=== PATIENT | female | born 1960 | race Caucasian/White ===

== ENCOUNTER → 2018-09-06 | Outpatient (CLI) | payer OTHER, SELFPAY ==
--- NOTE | 2018-09-06 15:27 | RAD_ITS ---
STUDY: X-RAY - RIGHT KNEE REASON FOR EXAM: Bilateral knee pain. TECHNIQUE: 4 view(s) of the knee. COMPARISON: None. FINDINGS: Normal visualized distal femur. Normal visualized proximal tibia and fibula. Normal proximal tibiofibular articulation. Normal medial femorotibial compartment. Normal lateral femorotibial compartment. There are small marginal osteophytes and moderate joint space narrowing of the patellofemoral articulation. The soft tissue structures are unremarkable. RAD/Knee 4 or More Views IMPRESSION: Patellofemoral arthrosis. Electronically Signed: Pato Jernigan MD at 10:48 EDT Tel , Service support ,
--- NOTE | 2018-09-06 15:27 | RAD_ITS ---
STUDY: X-RAY - LEFT KNEE REASON FOR EXAM: Female, 58 years old. Bilateral knee pain. TECHNIQUE: 4 view(s) of the knee. COMPARISON: None. FINDINGS: There is generalized osteopenia. Normal visualized distal femur. Normal visualized proximal tibia and fibula. Normal proximal tibiofibular articulation. There is mild medial compartmental arthrosis. Normal lateral femorotibial compartment. There is lateral tilt and subluxation of the patella with moderate arthrosis of the patellofemoral compartment. There is an intra-articular osteochondral body in the anterior aspect of the knee measuring approximately 7 mm in widest diameter best seen on the lateral view. RAD/Knee 4 or More Views IMPRESSION: Osteopenia with medial and patellofemoral compartment arthrosis. 7 mm in diameter intra-articular osteochondral body. Electronically Signed: Pollo De La Torre MD at 17:02 EDT , Service support ,
== END | disposition home or self-care (01) ==
LOC: HPRAD 15:26
PROVIDERS: Family Provider Internal Medicine; PCP Internal Medicine; Referring Provider Orthopaedic Surgery; Visit Provider Orthopaedic Surgery
DX: M25.561 Pain in right knee (principal); M25.562 Pain in left knee
CPT/HCPCS: 73564

== ENCOUNTER 2018-09-14 15:52 | Outpatient (RCR) | payer OTHER, SELFPAY ==
--- NOTE | 2018-09-14 17:01 | HP.PTEVAL_ITS ---
Patient's Visit Information KIMBERLEY MATHEWS is a 58 year old F referred to Physical Therapy by Marlena Resendiz DO with a diagnosis of Patellofemoral OA, Maltracking of Patella. Date of Evaluation: 09/14/18 Physical Therapist: Dorita Cervantes DPT - Visit Plan Plan: Home exercise program give- high deductible was unable to attend more therapy sessions. Gave email and encouraged her to call or email with questions - Subjective Findings: Patient reports that both knees bother her- chronic issue- just can't put up with it anymore. Pain is located under the knee caps-No radiating pain. Worst: 01/05 Agg: walking on uneven ground, stairs, getting up out of the chair- when she rides her bike its not bad but it hurts after. Rides 1x a week- a couple hours at a time. Eases: rest, Naproxen Best: 06/05. Had previous surgery on the right 30 years ago to track her knee cap and cleaned it out. X- rays on both but no MRI. Did not have injection- but did just get approval for gel injections. Does not want to come to PT only have a HEP. Work: [employer] and is on her feet 8 hours a day with heavy lifting. Wears tennis shoes and has gel inserts. Describes the pain as dull/achy and sharp/shooting depends on what she is doing. Right is worse than left. No N/T in the LE. Sleep: not disturbed. PMHx/meds: no changes since saw MD- but has a heart stent - Objective Posture:good throughout session. Gait: no deviation noted. Stairs: asc/desc 8 recip with no HR- mild toe out with asc and decreased control with descent. HR/TR: able without incidence. SLS: hip drop- decreased balance after 15 second-increaesed muscle activation. Palpation tender along right superior lateral patella. ROM: 0-130 degrees. Strength: ankle: 5/5, Knee: 4+/5 Hip: 4+/5- patella tracks laterally bilaterally right>left Core: fair. Observation: mild pes planus - Goals Goal 1:: Patient I with HEP - Rehabilitation Potential Physical Therapy Diagnosis: Patient presents with hypomobility- she has decreased strength, flex and muscular endurance leading to poor tracking patellas and pain with ADL's. - Anticipated Interventions Thank you for the opportunity to evaluate your patient. For Medicare and Medicare HMO plans, please review the plan of care and approve it. It will need to be FAXED BACK to us at [phone] for Medicare purposes. For Medicare only, by signing this I certify the plan of care. Please let me know if there are questions or concerns regarding this plan of care. Physician Signature: Date:
--- NOTE | 2018-11-29 13:31 | HP.PTDCSUM ---
HP - PT D/C Summary It has been my pleasure to treat KIMBERLEY MATHEWS under orders from Marlena Resendiz DO, for the diagnosis of Patellofemoral OA, Maltracking of Patella for a total of 1 visit(s). Discharge Date: 09/14/18 Please see the following information for a summary of their discharge status. - Goals Goal 1:: Patient I with HEP - Plan Plan: Home exercise program give- high deductible was unable to attend more therapy sessions. Gave email and encouraged her to call or email with questions - D/C Information Discharge Comments: Patient has high deductible and does not want to attend therap- was given HEP and encouraged to call if questions If there are questions or concerns regarding this patient's physical therapy, please feel free to call me at [phone]. Thank you for the referral of this patient. Sincerely, CRISTOPHER EasleyT
== END 2018-09-14 19:00 | disposition home or self-care (01) ==
LOC: PT 15:52
PROVIDERS: Family Provider Internal Medicine; PCP Internal Medicine; Referring Provider Orthopaedic Surgery; Visit Provider Orthopaedic Surgery
DX: M22.2X9 Patellofemoral disorders, unspecified knee (principal)
CPT/HCPCS: 97110; 97161

== ENCOUNTER → 2020-08-19 16:34 | Outpatient (CLI) | payer OTHER, SELFPAY ==
--- NOTE | 2020-08-19 16:36 | CT_ITS ---
STUDY: LEFT LOWER EXTREMITY CT SCAN REASON FOR EXAM: Female, 60 years old. templating for LEFT TKA RADIATION DOSAGE (If Supplied By Facility): CTDIvol = ( 18.76 ) mGy, DLP = ( 1193.63 ) mGycm. Individualized dose optimization techniques were used for this CT.? TECHNIQUE: Axial multidetector CT scan of the left lower extremity. Coronal and sagittal reformatted images. COMPARISON: 07/18/2020. FINDINGS: Left hip: Mild left hip osteoarthritis. Mild pubic symphysis arthrosis. Normal sacroiliac joint. Visualized intra-abdominal/pelvic contents within normal limits. Osseous structures intact. Left knee: Mild medial and lateral compartment arthrosis. Severe patellofemoral arthrosis. Small volume left knee joint effusion. Multiple joint spaces loose bodies measuring up to 6 mm (sagittal image 36 series 605). Lateral femoral trochlea osteochondral lesion (sagittal image 44 series 605). Mild soft tissue swelling. Osseous structures intact. Left ankle: Achilles Achilles enthesophyte. Plantar spur. Osseous structures intact without significant degenerative features. CT/Extremity Lower without Contra IMPRESSION: Left knee osteoarthritis predominating at the patellofemoral articulation Left knee small joint effusion with loose bodies and mild swelling Mild left hip and left ankle osteoarthritis Electronically Signed: Rafiq Sol DO at 12:43 EDT Tel , Service support ,
== END ==
PROVIDERS: PCP Internal Medicine; Referring Provider Orthopaedic Surgery; Visit Provider Orthopaedic Surgery
DX: M17.11 Unilateral primary osteoarthritis, right knee (principal)
CPT/HCPCS: 73700

== ENCOUNTER 2020-09-10 05:24 | Day surgery (SDC) | payer OTHER, SELFPAY ==
--- NOTE | 2020-08-29 15:53 | EKG12_ITS ---
Test Reason : PRE-OP Blood Pressure : / mmHG Vent. Rate : 066 BPM Atrial Rate : 066 BPM P-R Int : 224 ms QRS Dur : 076 ms QT Int : 398 ms P-R-T Axes : 056 005 027 degrees QTc Int : 417 ms Sinus rhythm with 1st degree A-V block Otherwise normal ECG Confirmed by SCOTT VELOZ, JOSEFINA ([id number]), international editorial producer ANGELA LAGUNAS ([id number]) on 09/02/2020 10:39:09 AM Referred By: Tonny Gomez Confirmed By:NEEMA CHAVEZ MD
[2020-08-29 17:29] LABS: Absolute Lymphocyte Count 2.51 X10^3/uL (0.83-4.51); Absolute Neutrophil Count 4.5 X10^3/uL (2.0-7.7); Basophil# 0.02 X10^3/uL; Basophil% 0.3 % (0-1); Eosinophil# 0.08 X10^3/uL; Hematocrit 40.8 % (37-47); Hemoglobin 13.6 g/dL (12.0-15.0); Lymphocyte # 2.51 X10^3/ul (0.83-4.51); Lymphocyte % 32.9 % (19-41); Mean Corp Hgb Conc 33.3 g/dL (32-36); Mean Corpuscular Hgb 30.8 pg (27.0-32.0); Mean Corpuscular Volume 92.3 fL (81-99); Monocyte# 0.53 X10^3/uL; Monocyte% 6.9 % (0-10); NRBC Flagged by Analyzer 0 % (0-5); Neutrophil # 4.49 X10^3/uL (2.7-7.7); Neutrophil % 58.8 % (47-70); Platelet Count 249 K/mm3 (150-450); RBC Distribution Width CV 12.3 % (11.6-14.6); RBC Distribution Width SD 42.3 fl (35.1-43.9); Red Blood Count 4.42 M/mm3 (4.2-5.4); White Blood Count 7.6 K/mm3 (4.4-11.0)
[2020-08-29 17:31] LABS: Prothrombin Time (Protime)PT. 12.4 SECONDS (11.7-14.9)
[2020-08-29 17:32] LABS: Partial Thromboplast Time 33.1 Seconds (24.1-36.2)
[2020-08-29 17:53] LABS: Anion Gap 7 (5-15); BUN 28 mg/dL (7-18); BUN/Creat Ratio 31.4 RATIO (10-20); Calcium,Total 9.2 mg/dL (8.5-10.1); Chloride 101 mmol/L (98-107); Creatinine, Serum 0.89 mg/dL (0.55-1.02); EST Glomerular Filtration Rate 68 mL/min (>60); Est Glom Filt Rate - Afr Amer 82 mL/min (>60); Glucose 88 mg/dL (74-106); Potassium 4.3 mmol/L (3.5-5.1); Sodium Level 140 mmol/L (136-145)
[2020-08-29 18:02] LABS: Magnesium 2.3 mg/dL (1.6-2.6)
[2020-08-31 08:40] LABS: Fructosamine 231 umol/L (0-285)
[2020-09-10] VITALS (11 sets, daily range): BP systolic 101–172; BP diastolic 52–83; PULSE 61–81; RESP 16–18; TEMP 36.2–36.6; O2SAT 97–100; BMI 26.6
[2020-09-10] MEDS: Gabapentin 600 MG Tablet PO (06:24)
[2020-09-10] MEDS: Scopolamine 1mg/72hr Patch 1 PATCH TD (06:25)
[2020-09-10] MEDS: Lactated Ringers 1,000 ML 100 ML IV ×2 (06:25→07:30)
[2020-09-10] MEDS: Celecoxib 200 MG Capsule 400 MG PO (06:25)
[2020-09-10] MEDS: Acetaminophen 500 MG Tablet 1000 MG PO ×2 (06:25→13:41)
--- NOTE | 2020-09-10 07:05 | HP.PCM_ITS ---
History and Physical Date of Admission: 09/10/20 MR#:[id number]:[id number]: KIMBERLEY MATHEWS #:[id number] Provider:Dr. Tonny Gomez DOAge/Sex: 60/F [place] [place] Int[place] Intake Visit Reasons: bilateral knee Allergies No Known Allergies Allergy (Unverified 07/18/20 14:16) Medications aspirin 81 mg tablet,delayed release PO 30 Days #30 tab 09/06/18 [History Confirmed 07/24/20] metoprolol tartrate 25 mg tablet PO 30 Days #60 tab 09/06/18 [History Confirmed 07/24/20] simvastatin 20 mg tablet PO 30 Days #30 tab 09/06/18 [History Confirmed 07/24/20] trazodone 50 mg tablet PO 90 Days #90 tab 09/06/18 [History Confirmed 07/24/20] HPI bilateral knee Details: Parts of this documentation were recorded by a scribe, this documentation accurately reflects the service provided and the decisions made by me, Dr. Tonny Gomez, 07/24/20 2129. KIMBERLEY MATHEWS is a 60 year old F here today for bilateral knee pain. Pain (location, quality, quantity, radiation): Under the kneecap on both sides and medial sided knee pain. When sitting no pain, when moving 10/10 and it feels like gringins, popoing, instability. Onset (date, injury, precipitating event): 5-6 years, right sided racquetball injury in the 80's - surgery fixed. 1 month ago noticed in the left knee she could not kneel due to pain. Prior Hx (injury, surgery, prior issues with extremity): Right knee arthroscopic surgery (regarding ligaments patient thinks, but she cannot recall). Denies all else. Aggravating factor (position, tasks): Going up stairs, walking, standing, standing up from a chair Treatments (ice/heat , Medication, bracing, injections, home exercises): Uses biofreeze, but this is not working. Ice helps some. Has tried Tylenol and naproxen, both without relief. Denies steroid injections, bracing. Orthovisc injection last given 10/11/18, which helped for awhile - few months. Has had formal PT, but always makes it worse. Comorbidities (BMI, DM, Inflammatory conditions, blood thinner, chemotherapy): Takes 1 baby aspirin, she has a stent in her heart and is not sure if she can take NSAIDs. Social (upper extremity dominance, profession, tobacco/drugs/ETOH): Works on her feet 8 hours per day/ lifting heavy boxes at [employer]. Other: Denies locking/catching. Cannot carry even a jug of milk going up the stairs. [employer] [facility] [employer] [facility]. ROS Const Denies chills and Denies fever(s) Card Denies dyspnea Resp Denies dyspnea GI Denies nausea and Denies vomiting Musc Reports arthralgias, Reports atrophy, Denies joint swelling, Denies limited range of motion, Denies numbness, Reports stiffness and Denies tingling Skin/Breast Denies rash Neuro No numbness and No tingling Ortho Exam General General: Yes no acute distress Neurologic: Yes alert and Yes oriented x3 Psychologic: Yes reasonable and appropriate Right Knee Skin/Wound: No erythema, No ecchymosis and No swelling Knee ROM: Yes ROM-Extension -20 to 0 (lacking 3 degrees) and Yes ROM-Flexion 0- 140 Examination: Yes Med jt line tenderness, Yes Lat jt line tenderness, No Pain with flexion, No Pain with extention, No Fabiano's Test and No TTP Pes Anserine Stability: NML: Anterior Drawer, NML: Posterior Drawer, NML: Valgus 30 and NML: Varus 30 Patella Grind: Yes KNEE: No patellar instability Left Knee Skin/Wound: No ecchymosis, No erythema and No swelling Knee ROM: Yes ROM-Extension -20 to 0 and Yes ROM-Flexion 0-140 Examination: Yes med jt line tenderness, Yes Lat jt line tenderness, No Fabiano's Test and No TTP Pes Anserine Stability: NML: Anterior Drawer, NML: Posterior Drawer, NML: Valgus 30 and NML: Varus 30 Patella Grind: Yes KNEE: no patellar instability. Supplemental Info 07/18/2020 x-ray left knee medial and patellofemoral arthrosis worse patellofemoral with loose body anterior recess 07/18/2020 x-ray right knee advanced patellofemoral arthrosis with spurring throughout the knee Coding Level of Care Code Off vis,new,level 3 Diagnoses Right knee DJD M17.11 Left knee DJD M17.12 Assessment and Plan Assessment and Plan (1) Right knee DJD: Status: Acute Plan - Dr. Tonny Gomez, DO: Xrays were taken today. Educated patient that she has bilateral medial and patellofemoral OA. On the left she also has a loose body. Treatment options include steroid injections, viscosupplementation, PT, NSAIDs, bracing, or surgical options. Educated her that because of her age and other compartment spurring would do a TKA versus just replacing the patella. Educated that if she opts for the surgical option she cannot do a TKA for 3 month after steroid injections due to increased risk of infection. TKA was discussed, risks, benefits, and post operative course. 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 Discussed that she would most likely be off work for 3 months and she would be in PT for approximately 2 months after lele niecy. Discussed that I recommend doing 1 knee at a time versus both at the same time. Second knee can be done about 3 months after the first knee is done. Discussed IOVERA treatments and the benefits. She would like to think about the options that were discussed today and she will let us know what she would like to do. Risks, benefits and alternatives of surgery reviewed including but not limited to bleeding, infection, nerve, artery and/or tissue damage, fracture, VTE, mechanical feel of the knee, continued pain, stiffness and expected post- operative course. Patient's questions were answered. She is in agreement with the plan. Patient should follow up in or sooner if worsening signs/symptoms. (2) Left knee DJD: Status: Acute 07/24/20 1617<Electronically signed by Alexandria TALBERT PA>Date Alexandria TALBERT 07/24/20 1559<Electronically signed by Tonny Gomez DO>Cosigner Signature:Date (if applicable)Tonny Gomez have re-examined the patient. There are no clinical changes since date of exam
[2020-09-10] MEDS: Cefazolin 2 GM in 0.9% Normal Saline 100 ML IV (07:29)
--- NOTE | 2020-09-10 07:30 | KNEE_PTH ---
PATIENT: KIMBERLEY MATHEWS [place] [facility] [place][id number] AGE/SX: 60/F ROOM: RE09/10/[address]: Dr. Tonny Gomez DO : 1960 BED: DIS: 09/10/2020 SPEC #: [id number] RECD: 09/10/20 10:13 STATUS: KIMI REPepper #: [id number] MILES: 09/10/20 07:[address]: Tonny Gomez DEPT: SURGICAL PATHOLOGY RECD BY: Denisse Bridges ENTERED: 09/10/20 10:33 SP TYPE: TOTAL KNEE OTHR DR: Dr. Mabel Santoro MD Tissues: Knee, NOS Procedures: Decalcification bone/plaque Surgery Specimen Level IV HEADER OPERATION: ERAS, total knee replacement robotic arm assist PRE-OP DIAGNOSIS: DJArya TISSUE SUBMITTED: Bone and soft tissue, left knee MICROSCOPIC DIAGNOSIS Bone and soft tissue, left knee, total knee replacement/resection: Pieces of bone with degenerative osteoarthritic changes. DAYNE:yeimy 09/13/2020 MICROSCOPIC DESCRIPTION Slides are reviewed. GROSS DESCRIPTION Received is one container designated bone and soft tissue left knee. The specimen consists of multiple fragments of dixon-yellow bone measuring in aggregate 10 x 8 x 2 cm. No soft tissue is identified. A number of bony fragments contain articular surfaces consistent with tibial plateau and femoral condyle and displaying prominent osteophyte formation and bone erosion. Title One Reading Teacher sections are submitted in one cassette after decalcification. / DAYNE:yeimy 09/10/20 TC:5 CPT: 74577, 78724
[2020-09-10] MEDS: dexAMETHasone 10 MG/ML Vial IV (07:58)
[2020-09-10 08:10] LABS: Bedside Glucose 93 mg/dL (70-110)
[2020-09-10] MEDS: Lactated Ringers 1,000 ML 125 ML IV (09:00)
[2020-09-10] MEDS: Epinephrine (1 mg/ml) 1 MG/ML VIAL (09:01)
[2020-09-10] MEDS: Bupivacaine Mpf 0.5% 30 ML VIAL (09:01)
[2020-09-10] MEDS: Betamethasone/Betamethasone 30 MG/5 ML Vial (09:01)
--- NOTE | 2020-09-10 09:19 | RAD_ITS ---
STUDY: X-RAY - LEFT KNEE REASON FOR EXAM: Postop left total knee arthroplasty. TECHNIQUE: 2 view(s) of the knee. COMPARISON: Radiographs 07/18/2020. FINDINGS: There is a left total knee arthroplasty without evidence of complication. There is postoperative gas in the soft tissues and overlying skin edna. RAD/Knee 1 or 2 Views IMPRESSION: Uncomplicated left total knee arthroplasty. Electronically Signed: Pato Jernigan MD at 13:55 EDT Tel , Service support ,
--- NOTE | 2020-09-10 09:22 | OP.PCM_ITS ---
Report of Operation Description of Surgical Findings:: Preoperative diagnosis: Left knee DJD Postoperative diagnosis: Same Procedure: Left total knee arthroplasty CT guided Robotic Assisted Implant: Precious triathlon press fit femoral component size3, press-fit tibial baseplate size 3, press fit asymmetric patella size 32, polyethylene X3 size 9 CS Anesthesia: un sucessful Spinal with conversion to general with adductor canal block Tourniquet time: 40 minutes at 300 mmHg Complications: None Condition: Stable to PACU Estimated blood loss: 150 cc Indication for procedure: This is a 60-year-old female with long standing degenerative joint disease of the knee who has failed conservative treatment and wished to proceed with elective total knee arthroplasty. Risk benefits and alternatives were reviewed including; risk of bleeding, infection, nerve artery and tissue damage, continued pain, postoperative stiffness, venous thromboembolism, need for postoperative rehabilitation, mechanical feel to the knee, and expected postoperative course. The operative CT and templating was performed with component sizing Procedure: The patient was met in the preoperative holding area. The operative extremity was identified by both patient and physician and was marked. Patient was met by anesthesia. An adductor canal block was placed by anesthesia postoperatively the patient was brought back to the operating room on a wheeled cart and transferred to the operating table in the supine position. Anesthesia was started. A well-padded tourniquet was placed on the operative extremity. The patient was prepped and draped in the usual sterile fashion. A timeout was called to ensure the proper patient procedure and extremity were being contemplated. An Esmarch was used to exsanguinate the extremity. The tourniquet was inflated. A 10 blade scalpel was used to make a midline incision down through the skin and subcutaneous tissue. Skin retractors placed. Bovie was used to perform meticulous hemostasis. full-thickness flaps were elevated medial and lateral along the joint capsule. A deep blade scalpel was used to perform a medial parapatellar arthrotomy. The knee was brought to full extension. A Bovie was used to release the soft tissues off the most proximal aspect of the medial tibial plateau, a three-quarter inch curved osteotome was also used for this process. The infrapatellar fat pad was excised. The superior fat pad was excised partially anteriorolateraly and portion the anterioromedial pad was elevated from the femur. At this point our intra- articular femoral array was placed of a 45 degree angle proximal and posterior to the medial epicondyle. Our tibial array was placed greater than 1 hands breath below the incision at a 20 degree angle stab incisions were used for this case were attached and checked with the robotic software. Tourniquet was let down. At this point registration babb were taken throughout the knee as well as checkpoints placed in the femur and tibia once the knee was registered then tensioned the medial and lateral ligaments in extension and 90 degrees of fl exion. We then used these numbers to adjust our components within parameters to balance the knee in both flexion and extension once this was done on our monitor we then proceeded with using the robotic arm to make our tibial plateau cut and anterior posterior and chamfer cuts and distal on the femur we then trialed and achieved the desired plan with a well-balanced knee. Lug holes were drilled in the femur the tibia preparation was completed with a fin punch and the patella was prepared by first using a caliper to ensure sufficient bone stock and a patellar reamer to remove the desired amount of bone locals were drilled for an asymmetric poly-. We then brought the knee through range of motion with excellent patellar tracking. We thoroughly irrigated the knee with a trial components were removed a posterior capsular injection with her standard cocktail was performed the aqua Mantis was also used to aid in hemostasis. Betadine rinse was allowed to sit and washed out components were press-fit into place. Aricept rinse was then used followed by several more rate liters of irrigation after it was allowed to sit. Joint capsule was closed with #1 Ethibond [id number] followed by Vicryl in the subcutaneous tissues staple in the skin arrays and checkpoints were removed prior to closure all counts were correct stab incisions were closed with a stable standard dressing in the form of Mepilex for the main incision Xeroform 4 x 4 and Tegaderm over pin site holes. Thigh-high FELIPE hose applied over top of dressing. Patient tolerated the procedure well and was directed to PACU in stable condition no intraoperative complications
--- NOTE | 2020-09-10 09:24 | DCINST_ITS ---
Discharge Instructions Diet Discharge Diet: No restrictions Activity Weight Bearing Status: Weight bearing as tolerated Keep extremity elevated above heart level: Operative Extremity Dressing / Incision Call your doctor if you observe: Shortness of breath and Chest pain Change Dressing in: 3 days Remove Dressing in: 3 days Additional Dressing/Incision Instructions:: Ice and elevate one week while not ambulating. Ambulation is encouraged. Weightbearing as tolerated. Use assistive devise for stability. Encourage FULL knee extension and flexion 1 time EVERY time you get up and down and MULTIPLE times per day. No showering 72 hours after surgery. Begin showering postop day #3. Remove the dressing prior to shower and gently wash with warm water and antibacterial soap then pat dry and place abdominal pad (or plain gauze) and FELIPE hose over top. This is to be done daily. Do not submerge for 3 weeks. If not showering daily after the initial 72 hours then you must clean incision and change dressing daily. Do not allow animals near the incision area. Keep clean. Follow anticoagulation recommendations as prescribed. Do not take any NSAIDs while on blood thinner. Do not take any additional narcotic pain medication other than what was prescribed on your surgery day without discussing with physician. Narcotic medi cation can be addictive. do not drink alcohol while taking narcotics. Start physical therapy. If you are not currently scheduled for physical therapy or you are unsure of appointment time please call office [facility] to arrange. Call Dr. Gomez with any concerns. Follow Up Care Please Follow Up With: Tonny Gomez DO When: 2 weeks Test Results: Test results from this visit will be discussed in further detail at your follow-up appointment, if applicable. Discharge Plan Admission Attending Provider: Tonny Gomez Primary Care Provider: Mabel Santoro Discharge Orders/Prescriptions Prescriptions: New acetaminophen 500 mg Tablet 1,000 mg PO Q8 Qty: 100 RF: 0 oxycodone 5 mg Tablet 5 - 10 mg PO Q4H PRN PRN (Reason: Pain Score 4-10/10) 7 Days Qty: 60 RF: 0 cephalexin [cephalexin] 500 MG capsule 1,000 mg PO Q8 Qty: 4 RF: 0 Eliquis 2.5 MG tablet 2.5 mg PO BID Qty: 30 RF: 0 Continued trazodone 50 mg tablet 50 mg PO QHS 90 Days Qty: 90 RF: 0 aspirin 81 mg tablet,delayed release (DR/EC) 81 mg PO DAILY 30 Days Qty: 30 RF: 0 simvastatin 20 mg tablet 20 mg PO QHS 30 Days Qty: 30 RF: 0 metoprolol tartrate 25 mg tablet 25 mg PO BID 30 Days Qty: 60 RF: 0 Calcium 600 with Vitamin D3 600 mg(1,500mg) -400 unit Tablet,Chewable 1 tab PO BID RF: 0 Referrals / Follow Up: Mabel Santoro MD [Primary Care Provider] - Disposition Discharge Orders: Discharge Patient (Routine); Ordered 09/10/20 Ordered By: Dr. Tonny Gomez
[2020-09-10] MEDS: oxyCODONE 5 MG Tablet PO (11:34)
[2020-09-10] MEDS: Cefazolin 1 GM/50 ML BAG IV (13:43)
[2020-09-10] MEDS: Ketorolac 15 MG/ML Vial IV (15:04)
== END 2020-09-10 15:44 | disposition home or self-care (01) ==
LOC: SDC 05:24 → AC 05:25
PROVIDERS: Anesthesiology; PCP Internal Medicine; Referring Provider Orthopaedic Surgery; Visit Provider Orthopaedic Surgery
PROC: 0SRD0JZ Replacement of Left Knee Joint with Synthetic Substitute, Open Approach (ICD-10-PCS; CPT 27447; principal; 2020-09-10 07:00)
DX: M17.12 Unilateral primary osteoarthritis, left knee (principal); E11.9 Type 2 diabetes mellitus without complications; Z87.891 Personal history of nicotine dependence; Z79.899 Other long term (current) drug therapy
CPT/HCPCS: 01402; 27447; 64447; 36415; 73560; 80048; 82962; 82985; 83735; 85025; 85610; 85730; 86850; 86900; 86901; 87081; 88305; 88311; 93005; 97162; C1776; J7120; J0702; J2405

== ENCOUNTER 2020-11-20 09:30 | Outpatient (RCR) | payer OTHER, SELFPAY ==
[2020-09-10 06:27] VITALS: BMI 26.6
--- NOTE | 2020-09-12 12:14 | HP.PTEVAL ---
Patient's Visit Information KIMBERLEY MATHEWS is a 60 year old F referred to Physical Therapy by Dr. Tonny Gomez DO with a diagnosis of L TKA . Date of Evaluation: 09/12/20 Physical Therapist: Bull Jay, PT, ATC - Visit Plan Frequency: 2-3x /Week Duration: 6 Weeks Plan: L knee PROM/mobs, stretching and strengthening, balance and proprio, nustep, and HEP - Subjective DOS: 09/10/20. Pt reports L TKA after years of L knee pain. Pt reports she was supposed to get a L TKA 15 years ago due to the damage but wanted to hold off. Pt reports her pain was not too bad a day after surgery, but notes she is very painful today. Pt notes she has sleep difficulty without the use of pain meds. Pt notes since her nerve block has worn off, she is in severe pain today. Pt notes the pain meds are not helping. Pt reports no tingling or numbness in L LE at this time. Pt reports a lot of stairs at home, and notes she can negotiate them one step at a time. 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 Pt notes she has a shoulder injury that is going through [employer] at the time. 4/10 pain at rest, 10/10 pain when getting out of bed and walking. - Pain L knee Pain Intensity (Out of 10): 4 Pain Intensity Range: 10 - Objective Nuero: B LE sensation is WNL to light touch. B achilles reflex= 1/3. Girth: R knee 36, L knee 40.5. ROM: R knee 0-7-130, L knee 0-17-80. MMT: R knee 13.1 throughout, L knee 0 throughout #F. [id number] - Goals Goal 1:: Decrease L knee pain x 50% to aid with sleep Goal Time Frame: 4-6 Weeks Goal 2:: Increase L knee ROM x 30 degrees to aid with restoring a more normalized gait pattern Goal Time Frame: 4-6 Weeks Goal 3:: Increase L knee strength x 1 grade to aid with stair negotiation Goal Time Frame: 4-6 Weeks Goal 4:: I with HEP Goal Time Frame: 4-6 Weeks - Rehabilitation Potential Physical Therapy Diagnosis: L knee pain, weakness, and limted ROM secondary to L TKA Rehabilitation Potential: Good - Anticipated Interventions Patient/Client Instruction: Educate patient on: Condition, Plan of Care For the Purpose of:: To improve self management Therapeutic Exercise to Include: Strength training, Balance training, Flexibilty training, Gait and locomotor training, Passive ROM, Active ROM, Dynamic Lumbar Stabilization For the Purpose of:: To decrease pain, To increase ROM, To improve muscle performance and motor function Cryotherapy (ice pack, ice massage): Yes For the Purpose of:: To decrease pain Thank you for the opportunity to evaluate your patient. For Medicare and Medicare HMO plans, please review the plan of care and approve it. It will need to be FAXED BACK to us at [phone] for Medicare purposes. For Medicare only, by signing this I certify the plan of care. Please let me know if there are questions or concerns regarding this plan of care. Physician Signature: Date:
--- NOTE | 2020-10-07 10:37 | HP.PTREVAL ---
Dr. Tonny Gomez, DO, It has been my pleasure to treat KIMBERLEY MATHEWS over the last 10 visits for L TKA . Please see the progress note below for an update on the physical therapy plan of care! Subjective: I am feeling better and better Objective/Function: Pt kaycee Rx well. Very challenged with ex's today. L knee ROM 0-5-120. Pt is progressing well toward Rx goals Plan Plan: L knee PROM/mobs, stretching and strengthening, balance and proprio, nustep, and HEP Goals Goal 1:: Decrease L knee pain x 50% to aid with sleep Goal Time Frame: 4-6 Weeks Goal Progress: Goal Met Goal 2:: Increase L knee ROM x 30 degrees to aid with restoring a more normalized gait pattern Goal Time Frame: 4-6 Weeks Goal Progress: Progressing Goal 3:: Increase L knee strength x 1 grade to aid with stair negotiation Goal Time Frame: 4-6 Weeks Goal Progress: Progressing Goal 4:: I with HEP Goal Time Frame: 4-6 Weeks Goal Progress: Progressing Anticipated Interventions Patient/Client Instruction: Educate patient on: Condition, Plan of Care For the Purpose of:: To improve self management Therapeutic Exercise to Include: Strength training, Balance training, Flexibilty training, Gait and locomotor training, Passive ROM, Active ROM, Dynamic Lumbar Stabilization For the Purpose of:: To decrease pain, To increase ROM, To improve muscle performance and motor function Cryotherapy (ice pack, ice massage): Yes For the Purpose of:: To decrease pain Please do not hesitate to contact me at [phone] by phone or if you have questions or concerns regarding this new plan of care! Sincerely, Bull Jay, PT, ATC
--- NOTE | 2020-10-25 10:30 | HP.PTREVAL ---
Dr. Tonny Gomez, DO, It has been my pleasure to treat KIMBERLEY MATHEWS over the last 18 visits for L TKA . Please see the progress note below for an update on the physical therapy plan of care! Subjective: I am stiff today Objective/Function: Pt reports pain is 3/10, still causes her to have sleep difficulty at this time. L knee MMT: Knee ext= 13#F, flex= 20 #F. L knee ROM: 0-5-107. Pt is progressing well toward Rx goals Plan Plan: L knee PROM/mobs, stretching and strengthening, balance and proprio, nustep, and HEP Balance/Gait/Functional tests - Balance/Special Test Scores Lower Extremity Functional Score: 55 Goals Goal 1:: Decrease L knee pain x 50% to aid with sleep Goal Time Frame: 4-6 Weeks Goal Progress: Progressing Goal 2:: Increase L knee ROM x 30 degrees to aid with restoring a more normalized gait pattern Goal Time Frame: 4-6 Weeks Goal Progress: Progressing Goal 3:: Increase L knee strength x 1 grade to aid with stair negotiation Goal Time Frame: 4-6 Weeks Goal Progress: Progressing Goal 4:: I with HEP Goal Time Frame: 4-6 Weeks Goal Progress: Progressing Anticipated Interventions Patient/Client Instruction: Educate patient on: Condition, Plan of Care For the Purpose of:: To improve self management Therapeutic Exercise to Include: Strength training, Balance training, Flexibilty training, Gait and locomotor training, Passive ROM, Active ROM, Dynamic Lumbar Stabilization For the Purpose of:: To decrease pain, To increase ROM, To improve muscle performance and motor function Cryotherapy (ice pack, ice massage): Yes For the Purpose of:: To decrease pain Please do not hesitate to contact me at [phone] by phone or if you have questions or concerns regarding this new plan of care! Sincerely, Bull Jay, PT, ATC
--- NOTE | 2020-11-20 11:01 | HP.PTREVAL ---
Dr. Tonny Gomez, DO, It has been my pleasure to treat KIMBERLEY MATHEWS over the last 28 visits for L TKA . Please see the progress note below for an update on the physical therapy plan of care! Subjective: Only mild pain today. I think I am ready for discharge. Objective/Function: L knee pain 1/10 currently. Increases to 8/10 when she experiences a sudden shooting pain when she twists her knee. L knee ROM: 0-5-110. L knee MMT: flex 17, ext= 23 #F. Pt is now I with HEP Plan Plan: Discharge Balance/Gait/Functional tests - Balance/Special Test Scores Lower Extremity Functional Score: 58 Goals Goal 1:: Decrease L knee pain x 50% to aid with sleep Goal Time Frame: 4-6 Weeks Goal Progress: Goal Met Goal 2:: Increase L knee ROM x 30 degrees to aid with restoring a more normalized gait pattern Goal Time Frame: 4-6 Weeks Goal Progress: Goal Met Goal 3:: Increase L knee strength x 1 grade to aid with stair negotiation Goal Time Frame: 4-6 Weeks Goal Progress: Goal Met Goal 4:: I with HEP Goal Time Frame: 4-6 Weeks Goal Progress: Goal Met Anticipated Interventions Patient/Client Instruction: Educate patient on: Condition, Plan of Care For the Purpose of:: To improve self management Therapeutic Exercise to Include: Strength training, Balance training, Flexibilty training, Gait and locomotor training, Passive ROM, Active ROM, Dynamic Lumbar Stabilization For the Purpose of:: To decrease pain, To increase ROM, To improve muscle performance and motor function Cryotherapy (ice pack, ice massage): Yes For the Purpose of:: To decrease pain Please do not hesitate to contact me at [phone] by phone or if you have questions or concerns regarding this new plan of care! Sincerely, Bull Jay, PT, ATC
--- NOTE | 2021-01-07 15:28 | HP.PTDCSUM ---
It has been my pleasure to treat KIMBERLEY MATHEWS referred by Dr. Tonny Gomez DO, with the diagnosis of L TKA for a total of 28 visit(s). Discharge Date: Please see the following information for a summary of their discharge status. Subjective: Only mild pain today. I think I am ready for discharge. L knee Pain Intensity (Out of 10): 1 % Improvement: 80 Objective/Function: L knee pain 1/10 currently. Increases to 8/10 when she experiences a sudden shooting pain when she twists her knee. L knee ROM: 0-5-110. L knee MMT: flex 17, ext= 23 #F. Pt is now I with HEP Goal 1:: Decrease L knee pain x 50% to aid with sleep Goal Progress: Goal Met Goal 2:: Increase L knee ROM x 30 degrees to aid with restoring a more normalized gait pattern Goal Progress: Goal Met Goal 3:: Increase L knee strength x 1 grade to aid with stair negotiation Goal Progress: Goal Met Goal 4:: I with HEP Goal Progress: Goal Met Plan: Discharge If there are questions or concerns regarding this patient's physical therapy, please feel free to call me at [phone]. Thank you for the referral of this patient. Sincerely, Bull Jay, PT, ATC Balance/Gait/Functional tests - Balance/Special Test Scores Lower Extremity Functional Score: 58
== END 2020-11-20 19:00 | disposition home or self-care (01) ==
LOC: PT 09:30
PROVIDERS: PCP Internal Medicine; Referring Provider Orthopaedic Surgery; Visit Provider Orthopaedic Surgery
DX: Z47.1 Aftercare following joint replacement surgery (principal); Z96.651 Presence of right artificial knee joint
CPT/HCPCS: 97110; 97140; 97161; 97164; 97530

== ENCOUNTER → 2020-12-25 09:39 | Outpatient (CLI) | payer OTHER, SELFPAY ==
[2020-12-25 12:44] LABS: BUN 33 mg/dL (7-18); Creatinine, Serum 0.79 mg/dL (0.55-1.02); EST Glomerular Filtration Rate 78 mL/min (>60); Est Glom Filt Rate - Afr Amer 94 mL/min (>60)
== END ==
PROVIDERS: PCP Internal Medicine; Referring Provider Orthopaedic Surgery; Visit Provider Orthopaedic Surgery
DX: Z79.1 Long term (current) use of non-steroidal anti-inflammatories (NSAID) (principal)
CPT/HCPCS: 36415; 82565; 84520

== ENCOUNTER 2021-01-31 15:00 | Outpatient (RCR) | payer OTHER, SELFPAY ==
--- NOTE | 2020-12-30 16:59 | HP.PTEVAL ---
Patient's Visit Information KIMBERLEY MATHEWS is a 60 year old F referred to Physical Therapy by Dr. Tonny Gomez DO with a diagnosis of L TKA 09/10/20. Date of Evaluation: 12/30/20 Physical Therapist: Bull Jay, PT, ATC - Visit Plan Frequency: 2-3x /Week Duration: 4-6 Weeks Plan: L knee PROM and mobs, stretching and strengthening, balance and proprio, core strengthening, bike, and HEP - Subjective DOS: 09/10/20. Pt reports she had a L TKA performed at that time. Pt reports she had PT for 9 weeks and then stopped because she had to RTW. Pt reports ever since she stopped with physical therapy, she has fe3lt weak and notes she believes she is actually going backwards in her healing phase. Pt notes her L knee has given out on her in the past which resulted in a fall while at home. Pt reports she works at [employer] and has to stand upright all day while at work. Pt reports Dr Gomez wanted her to stay off of work for the time being, but patient is fearful that she will lose her job if she doesn't return. Pt notes she had recent x-rays which revealed no significant findings. Denies tingling or numbness this date in her L LE. Pt reports her goal is to strengthen her L knee so it feels strong again. 0/10 pain in L knee while at rest, 6/10 pain after work. - Pain L knee Pain Intensity (Out of 10): 0 Pain Intensity Range: 6 - Objective Neuro: B LE sensation is WNL to light touch. Girth at joint line: R knee 37 cm, L knee 41 cm. ROM: R knee 0-6-140, L knee 0-105. MMT: R knee is 5/5 throughout. L knee is 4-/5 and painful - Balance/Special Test Scores Lower Extremity Functional Score: 56 - Goals Goal 1:: Decrease L knee pain x 50% to aid with increasing tolerance for work requirements Goal Time Frame: 4-6 Weeks Goal 2:: Increase L knee strength x 1 grade to aid with preventing future falls Goal Time Frame: 4-6 Weeks Goal 3:: Increase L knee flexion ROM x 15 degrees to aid with restoring a more normalized gait pattern Goal Time Frame: 4-6 Weeks Goal 4:: I with HEP Goal Time Frame: 4-6 Weeks - Rehabilitation Potential Physical Therapy Diagnosis: L knee pain, weakness, and limited ROM secondary to residual effects of L TKA Rehabilitation Potential: Good - Anticipated Interventions Patient/Client Instruction: Educate patient on: Condition, Plan of Care For the Purpose of:: To improve self management Therapeutic Exercise to Include: Strength training, Balance training, Flexibilty training, Passive ROM, Active ROM, Dynamic Lumbar Stabilization For the Purpose of:: To decrease pain, To increase ROM, To improve muscle performance and motor function IF ES: Yes Cryotherapy (ice pack, ice massage): Yes For the Purpose of:: To decrease pain Thank you for the opportunity to evaluate your patient. For Medicare and Medicare HMO plans, please review the plan of care and approve it. It will need to be FAXED BACK to us at [phone] for Medicare purposes. For Medicare only, by signing this I certify the plan of care. Please let me know if there are questions or concerns regarding this plan of care. Physician Signature: Date:
--- NOTE | 2021-01-31 15:59 | HP.PTDCSUM ---
It has been my pleasure to treat KIMBERLEY MATHEWS referred by Dr. Tonny Gomez DO, with the diagnosis of L TKA 09/10/20 for a total of 12 visit(s). Discharge Date: Please see the following information for a summary of their discharge status. Subjective: Only mild pain this date L knee Pain Intensity (Out of 10): 1 % Improvement: 85 Objective/Function: L knee pain 1/10. L knee ROM: 0-3-117. L knee MMT: flex= 4+/5, ext= 5/5. Pt is I with HEP. Rx goals achieved Goal 1:: Decrease L knee pain x 50% to aid with increasing tolerance for work requirements Goal Progress: Goal Met Goal 2:: Increase L knee strength x 1 grade to aid with preventing future falls Goal Progress: Goal Met Goal 3:: Increase L knee flexion ROM x 15 degrees to aid with restoring a more normalized gait pattern Goal Progress: Goal Met Goal 4:: I with HEP Goal Progress: Goal Met Plan: Discharge If there are questions or concerns regarding this patient's physical therapy, please feel free to call me at [phone]. Thank you for the referral of this patient. Sincerely, Bull Jay, PT, ATC Balance/Gait/Functional tests - Balance/Special Test Scores Lower Extremity Functional Score: 60
== END 2021-01-31 19:00 | disposition home or self-care (01) ==
LOC: PT 15:00
PROVIDERS: PCP Internal Medicine; Referring Provider Orthopaedic Surgery; Visit Provider Orthopaedic Surgery
DX: Z47.1 Aftercare following joint replacement surgery (principal); Z96.652 Presence of left artificial knee joint
CPT/HCPCS: 97014; 97110; 97140; 97161; 97164; G0283